=== PATIENT | female | born 1970 | race Two or more races ===

== ENCOUNTER 2017-10-05 10:51 | Outpatient (CLI) | payer MEDICAID ==
--- NOTE | 2017-10-05 14:54 | Ultrasound Report ---
Procedure Date: 10/05/2017 Accession Number: [id number] / [id number] Procedure: US - Head or Neck Soft Tissue CPT Code: FULL RESULT: EXAM: Head or Neck Soft Tissue DATE: 10/05/2017 11:56 AM CLINICAL HISTORY: THYROID CYST COMPARISON: 06/19/2012. TECHNIQUE: Real time sonographic imaging of the thyroid was performed by the spray dry operator. Multiple loss prevention representative static images were saved for review. FINDINGS: THYROID GLAND: Right Lobe: 5.4 x 1.5 x 1.4 cm. Normal background echotexture. Right Lobe Nodules: 0.3 cm cyst. Left Lobe: 5 x 1.3 x 1.5 cm. Normal background echotexture. Left Lobe Nodules: 0.3 cm cyst. Isthmus: 0.1 cm AP. Isthmic Nodules: None. LYMPH NODES: No adenopathy demonstrated in the central or lateral compartment. OTHER: None. IMPRESSION: 1. Stable to decreased 3 mm cysts, one in each thyroid lobe. Based on size and appearance, these carry a very low suspicion for malignancy. Management recommendations are based on 2015 [place] [employer] Management Guidelines for Adult Patients with Thyroid Nodules and Differentiated Thyroid Cancer. RADIA
== END 2017-10-05 10:52 | disposition home or self-care (01) ==
LOC: DI 10:51
PROVIDERS: ATTEND Internal Medicine Endocrinology, Diabetes & Metabolism
DX: E04.1 Nontoxic single thyroid nodule (principal)
CPT/HCPCS: 76536

== ENCOUNTER 2018-12-12 11:23 | Outpatient (CLI) | payer MEDICAID ==
--- NOTE | 2018-12-13 12:07 | Ultrasound Report ---
Reason: HISTORY OF THYROID NODULE Procedure Date: 12/12/2018 Accession Number: [id number] / [id number] Procedure: US - Head or Neck Soft Tissue CPT Code: FULL RESULT: EXAM: THYROID ULTRASOUND EXAM DATE: 12/12/2018 12:42 PM. CLINICAL HISTORY: Follow-up thyroid nodules, family history of thyroid cancer. COMPARISON: HEAD OR NECK SOFT TISSUE 10/05/2017 11:29 AM. TECHNIQUE: Real time sonographic imaging of the thyroid was performed by the bulb assembler. Multiple sales representative advertising static images were saved for review. FINDINGS: THYROID GLAND: Right Lobe: 5.8 x 1.4 x 1.9 cm, volume 8.0 cc. Normal background echotexture. Right Lobe Nodules: Small cystic focus with some possible eccentric colloid in the lower pole measures 2 x 3 x 3 mm, unchanged. Left Lobe: 5.4 x 1.2 x 1.5 cm, volume 5.0 cc. Normal background echotexture. Left Lobe Nodules: Small cystic focus in the lower pole measures 4 x 2 x 3 mm, unchanged. Isthmus: 0.2 cm AP. Isthmic Nodules: None. LYMPH NODES: No adenopathy demonstrated in the central or lateral compartment. OTHER: None. IMPRESSION: 1. No thyroid enlargement or solid nodules. 2. 2 likely incidental cystic thyroid lesions bilaterally measuring 3 and 4 mm respectively not significantly changed. Management recommendations are based on 2015 [place] [employer] Management Guidelines for Adult Patients with Thyroid Nodules and Differentiated Thyroid Cancer. RADIA
== END 2018-12-12 11:24 | disposition home or self-care (01) ==
LOC: DI 11:23
PROVIDERS: ATTEND Internal Medicine Endocrinology, Diabetes & Metabolism
DX: E04.2 Nontoxic multinodular goiter (principal); Z80.8 Family history of malignant neoplasm of other organs or systems
CPT/HCPCS: 76536

== ENCOUNTER 2019-04-03 10:58 | Outpatient (CLI) | payer MEDICAID ==
[2019-04-03 17:37] LABS: BASOPHILS % (AUTO) 0.6 %; EOSINOPHILS # (AUTO) 0.1 10^3/uL (0.0-0.7); HGB - HEMOGLOBIN 12.6 g/dL (12.0-16.0); LYMPHOCYTES # (AUTO) 1.4 10^3/uL (1.5-3.5); MEAN CORPUSCULAR HEMOGLOBIN 31.9 pg (27.0-31.0); MEAN CORPUSCULAR HGB CONC 32.5 g/dL (32.0-36.0); MEAN CORPUSCULAR VOLUME 98.2 fL (81.0-99.0); MEAN PLATELET VOLUME 10.7 fL (7.9-10.8); MONOCYTES # (AUTO) 0.3 10^3/uL (0.0-1.0); MONOCYTES % (AUTO) 5.7 %; NEUTROPHILS # (AUTO) 3.3 10^3/uL (1.5-6.6); NEUTROPHILS % (AUTO) 65.5 %; PLT - PLATELET COUNT 225 10^3/uL (130-450); RED BLOOD COUNT 3.95 10^6/uL (4.20-5.40); RED CELL DISTRIBUTION WIDTH 12.3 % (12.0-15.0); WHITE BLOOD COUNT 5.1 x10^3/uL (4.8-10.8)
[2019-04-03 17:53] LABS: HB2 TOTAL 12.8 g/dL; HEMOGLOBIN A1C 0.42 g/dL; HEMOGLOBIN A1C % 5.2 % (4.6-6.2)
[2019-04-03 18:04] LABS: ALBUMIN 3.9 g/dL (3.2-5.5); ALBUMIN/GLOBULIN RATIO 1.3 (1.0-2.2); BILIRUBIN,TOTAL 0.6 mg/dL (0.2-1.0); CALCIUM 8.9 mg/dL (8.5-10.3); CREATININE 0.6 mg/dL (0.4-1.0); CRP HIGH SENSITIVITY 1.3 mg/L
[2019-04-03 18:08] LABS: THYROID STIMULATING HORMONE 0.93 uIU/mL (0.34-5.60)
[2019-04-03 18:09] LABS: FREE T4 (FREE THYROXINE) 0.74 ng/dL (0.58-1.64)
[2019-04-03 18:12] LABS: TOTAL T3 0.9 ng/mL (0.87-1.78)
[2019-04-03 18:13] LABS: FERRITIN 46.4 ng/mL (11.0-306.8)
[2019-04-04 10:43] LABS: HOMOCYSTEINE 10.1 umol/L (<10.4)
== END 2019-04-03 10:59 | disposition home or self-care (01) ==
LOC: LAB.S 10:58
PROVIDERS: ATTEND Family Medicine
DX: R53.83 Other fatigue (principal); E55.9 Vitamin D deficiency, unspecified; E03.9 Hypothyroidism, unspecified; R73.09 Other abnormal glucose; E72.11 Homocystinuria
CPT/HCPCS: 36415; 80050; 82306; 82626; 82728; 83036; 83090; 84439; 84480; 84481; 84482; 86141

== ENCOUNTER 2019-05-22 13:34 | Outpatient (CLI) | payer MEDICAID ==
[2019-05-22 16:51] LABS: BASOPHILS % (AUTO) 0.9 %; EOSINOPHILS % (AUTO) 0.9 %; HGB - HEMOGLOBIN 13.7 g/dL (12.0-16.0); LYMPHOCYTES # (AUTO) 1.4 10^3/uL (1.5-3.5); LYMPHOCYTES % (AUTO) 30.7 %; MEAN CORPUSCULAR HEMOGLOBIN 32.9 pg (27.0-31.0); MEAN CORPUSCULAR HGB CONC 33.7 g/dL (32.0-36.0); MEAN CORPUSCULAR VOLUME 97.6 fL (81.0-99.0); MEAN PLATELET VOLUME 10.7 fL (7.9-10.8); MONOCYTES # (AUTO) 0.3 10^3/uL (0.0-1.0); MONOCYTES % (AUTO) 6.4 %; NEUTROPHILS # (AUTO) 2.9 10^3/uL (1.5-6.6); NEUTROPHILS % (AUTO) 60.7 %; PLT - PLATELET COUNT 263 10^3/uL (130-450); RED BLOOD COUNT 4.16 10^6/uL (4.20-5.40); RED CELL DISTRIBUTION WIDTH 12.9 % (12.0-15.0); WHITE BLOOD COUNT 4.7 x10^3/uL (4.8-10.8)
[2019-05-22 17:02] LABS: ALBUMIN 4.2 g/dL (3.2-5.5); ALBUMIN/GLOBULIN RATIO 1.3 (1.0-2.2); BILIRUBIN,TOTAL 0.8 mg/dL (0.2-1.0); CALCIUM 9.4 mg/dL (8.5-10.3); CREATININE 0.6 mg/dL (0.4-1.0); TOTAL PROTEIN 7.4 g/dL (6.7-8.2)
[2019-05-22 17:20] LABS: THYROID STIMULATING HORMONE 0.56 uIU/mL (0.34-5.60)
[2019-05-22 17:22] LABS: FREE T4 (FREE THYROXINE) 0.78 ng/dL (0.58-1.64)
[2019-05-22 17:27] LABS: FERRITIN 56.6 ng/mL (11.0-306.8); TOTAL T3 1.24 ng/mL (0.87-1.78)
[2019-05-24 19:19] LABS: T3 REVERSE 16 ng/dL (8-25)
== END 2019-05-22 13:35 | disposition home or self-care (01) ==
LOC: LAB.S 13:34
PROVIDERS: ATTEND Naturopath
DX: E55.9 Vitamin D deficiency, unspecified (principal); G44.009 Cluster headache syndrome, unspecified, not intractable; E03.9 Hypothyroidism, unspecified; R53.83 Other fatigue; M81.8 Other osteoporosis without current pathological fracture
CPT/HCPCS: 36415; 80050; 81599; 82306; 82626; 82728; 83970; 84439; 84480; 84481; 84482

== ENCOUNTER 2020-03-07 13:54 | Outpatient (CLI) | payer MEDICAID ==
[2020-03-07 18:20] LABS: ALBUMIN 4.5 g/dL (3.2-5.5); ALBUMIN/GLOBULIN RATIO 1.5 (1.0-2.2); BILIRUBIN,TOTAL 0.9 mg/dL (0.2-1.0); CALCIUM 9.5 mg/dL (8.5-10.3); CREATININE 0.8 mg/dL (0.4-1.0); TOTAL PROTEIN 7.6 g/dL (6.7-8.2)
== END 2020-03-07 13:55 | disposition home or self-care (01) ==
LOC: LAB.S 13:54
PROVIDERS: ATTEND Internal Medicine Endocrinology, Diabetes & Metabolism
DX: G44.011 Episodic cluster headache, intractable (principal); M81.0 Age-related osteoporosis without current pathological fracture
CPT/HCPCS: 36415; 80053; 82306

== ENCOUNTER 2020-05-12 13:40 | Outpatient (CLI) | payer MEDICAID | END 2020-05-12 13:41 | disposition home or self-care (01) | LOC: LAB.S 13:40 | PROVIDERS: ATTEND Internal Medicine Endocrinology, Diabetes & Metabolism | DX: T45.2X1A Poisoning by vitamins, accidental (unintentional), initial encounter (principal) ==

== ENCOUNTER 2020-05-15 08:00 | Outpatient (CLI) | payer MEDICAID | END 2020-05-15 23:59 | disposition home or self-care (01) | LOC: LAB.S 08:00 | PROVIDERS: ATTEND Internal Medicine Endocrinology, Diabetes & Metabolism | DX: T45.2X1A Poisoning by vitamins, accidental (unintentional), initial encounter (principal) | CPT/HCPCS: 81599; 82340; 82570; 82575 ==

== ENCOUNTER 2020-05-19 08:30 | Outpatient (CLI) | payer MEDICAID ==
--- NOTE | 2020-05-19 13:50 | DEXA Report ---
PROCEDURE: Dexa Spine and/or Hip INDICATIONS: OSTEOPOROSIS TECHNIQUE: Dual energy x-ray absorptiometry (DXA) was performed on a [employer] System. Regions measur ed are the AP Spine, femoral neck, and if needed forearm. COMPARISON: None. FINDINGS: Lumbar Spine: Bone Mineral Density 0.888 g/cm/cm,T score -2.4, severe osteopenia Left Hip: Bone Mineral Density 0.759 g/cm/cm,T score -2.0, moderate osteopenia Left Femoral Neck: Bone Mineral Density 0.824 g/cm/cm, T score -1.5, mild osteopenia (T score greater or equal to -1.0: NORMAL) (T score from -1.1 to -2.4: OSTEOPENIA) (T score less than or equal to -2.5 to: OSTEOPOROSIS) Impression: Borderline osteoporosis within the left femoral neck with moderate osteopenia in the left hip. Patients with diagnosis of osteoporosis or osteopenia should have regular bone mineral density assess ment. For those eligible for Medicare, routine testing is allowed once every 2 years. Testing frequ ency can be increased for patients who have rapidly progressing disease or for those who are receivin g medical therapy to restore bone mass. Reviewed by: Rosa Isela Harris MD on 05/19/2020 1:49 PM PDT Approved by: Rosa Isela Harris MD on 05/19/2020 1:49 PM PDT Station ID: [id number]
== END 2020-05-19 08:31 | disposition home or self-care (01) ==
LOC: DI 08:30
PROVIDERS: ATTEND Internal Medicine Endocrinology, Diabetes & Metabolism
DX: M81.0 Age-related osteoporosis without current pathological fracture (principal)

== ENCOUNTER 2020-06-04 17:50 | Outpatient (CLI) | payer MEDICAID | END 2020-06-04 17:51 | disposition home or self-care (01) | LOC: LAB.S 17:50 | PROVIDERS: ATTEND Naturopath | DX: G44.011 Episodic cluster headache, intractable (principal); E67.3 Hypervitaminosis D; N95.1 Menopausal and female climacteric states; N92.6 Irregular menstruation, unspecified | CPT/HCPCS: 36415; 82310; 83519; 83970 ==

== ENCOUNTER 2020-07-31 14:49 | Outpatient (CLI) | payer MEDICAID ==
[2020-07-31 20:58] LABS: FOLLICLE STIMULATING HORMONE 58.61 mIU/mL
[2020-07-31 20:59] LABS: LUTEINIZING HORMONE 14.86 mIU/mL
== END 2020-07-31 14:50 | disposition home or self-care (01) ==
LOC: LAB.S 14:49
PROVIDERS: ATTEND Internal Medicine Endocrinology, Diabetes & Metabolism
DX: N95.1 Menopausal and female climacteric states (principal)
CPT/HCPCS: 36415; 82670; 83001; 83002

== ENCOUNTER 2020-10-16 14:09 | Outpatient (CLI) | payer MEDICAID | END 2020-10-16 14:10 | disposition home or self-care (01) | LOC: LAB.S 14:09 | PROVIDERS: ATTEND Naturopath | DX: G44.011 Episodic cluster headache, intractable (principal) | CPT/HCPCS: 81599; 82306; 82310; 83970 ==

== ENCOUNTER 2020-11-05 14:43 | Outpatient (CLI) | payer MEDICAID | END 2020-11-05 14:44 | disposition home or self-care (01) | LOC: LAB.S 14:43 | PROVIDERS: ATTEND Naturopath | DX: G44.011 Episodic cluster headache, intractable (principal) | CPT/HCPCS: 36415; 81599; 82306; 82310; 83970 ==

== ENCOUNTER 2020-11-07 10:57 | Outpatient (CLI) | payer MEDICAID ==
--- NOTE | 2020-11-07 13:29 | XRAY Report ---
PROCEDURE: Finger(s) RT INDICATIONS: UNSPECIFIED DISLOCATION OF UNSPECIFIED FINGER, INI TECHNIQUE: AP hand, 2 views of the second finger(s) acquired. COMPARISON: None FINDINGS: Bones: No fractures or dislocations. No suspicious bony lesions. Soft tissues: No suspicious soft tissue calcifications. IMPRESSION: No fractures or dislocations are seen on these plain films. Reviewed by: Blake Iniguez MD on 11/07/2020 12:28 PM AKDT Approved by: Blake Iniguez MD on 11/07/2020 12:28 PM AKDT Station ID: [id number]
== END 2020-11-07 10:58 | disposition home or self-care (01) ==
LOC: DI.S 10:57
PROVIDERS: ATTEND Naturopath
DX: S63.290A Dislocation of distal interphalangeal joint of right index finger, initial encounter (principal)

== ENCOUNTER 2020-12-03 15:24 | Outpatient (CLI) | payer MEDICAID | END 2020-12-03 15:25 | disposition home or self-care (01) | LOC: LAB.S 15:24 | PROVIDERS: ATTEND Naturopath | DX: G44.011 Episodic cluster headache, intractable (principal) | CPT/HCPCS: 36415; 82306; 82310; 83970 ==

== ENCOUNTER 2021-01-05 15:41 | Outpatient (CLI) | payer MEDICAID ==
[2021-01-05 20:23] LABS: CALCIUM 9.3 mg/dL (8.5-10.3); CREATININE 0.7 mg/dL (0.4-1.0); POTASSIUM 3.8 mmol/L (3.5-5.0)
== END 2021-01-05 15:42 | disposition home or self-care (01) ==
LOC: LAB.S 15:41
PROVIDERS: ATTEND Internal Medicine Endocrinology, Diabetes & Metabolism
DX: M81.0 Age-related osteoporosis without current pathological fracture (principal); N95.1 Menopausal and female climacteric states; G44.011 Episodic cluster headache, intractable; R82.994 Hypercalciuria
CPT/HCPCS: 36415; 80048; 82306; 83970

== ENCOUNTER 2021-02-15 14:20 | Outpatient (CLI) | payer MEDICAID ==
[2021-02-15 20:33] LABS: CALCIUM 9.2 mg/dL (8.5-10.3); CREATININE 0.7 mg/dL (0.4-1.0); POTASSIUM 3.4 mmol/L (3.5-5.0)
== END 2021-02-15 14:21 | disposition home or self-care (01) ==
LOC: LAB.S 14:20
PROVIDERS: ATTEND Internal Medicine Endocrinology, Diabetes & Metabolism
DX: M18.0 Bilateral primary osteoarthritis of first carpometacarpal joints (principal); N95.1 Menopausal and female climacteric states; G44.011 Episodic cluster headache, intractable; R82.994 Hypercalciuria
CPT/HCPCS: 36415; 80048; 82306; 83970

== ENCOUNTER 2021-03-29 16:34 | Outpatient (CLI) | payer MEDICAID ==
[2021-03-29 20:17] LABS: CALCIUM 9.1 mg/dL (8.5-10.3); CREATININE 0.6 mg/dL (0.4-1.0); POTASSIUM 3.3 mmol/L (3.5-5.0)
[2021-03-29 20:39] LABS: THYROID STIMULATING HORMONE 0.52 uIU/mL (0.34-5.60)
[2021-03-29 20:40] LABS: FREE T4 (FREE THYROXINE) 0.96 ng/dL (0.58-1.64)
[2021-03-29 21:06] LABS: FOLLICLE STIMULATING HORMONE 122.3 mIU/mL
== END 2021-03-29 16:35 | disposition home or self-care (01) ==
LOC: LAB.S 16:34
PROVIDERS: ATTEND Internal Medicine Endocrinology, Diabetes & Metabolism
DX: M81.0 Age-related osteoporosis without current pathological fracture (principal); N95.1 Menopausal and female climacteric states; G44.011 Episodic cluster headache, intractable; R82.994 Hypercalciuria; E23.7 Disorder of pituitary gland, unspecified
CPT/HCPCS: 36415; 80048; 82306; 82670; 83001; 83970; 84439; 84443

== ENCOUNTER 2021-05-26 15:43 | Outpatient (CLI) | payer MEDICAID ==
[2021-05-26 20:15] LABS: CALCIUM 9.6 mg/dL (8.5-10.3); CREATININE 0.8 mg/dL (0.4-1.0); POTASSIUM 3.9 mmol/L (3.5-5.0)
== END 2021-05-26 15:44 | disposition home or self-care (01) ==
LOC: LAB.S 15:43
PROVIDERS: ATTEND Naturopath
DX: G44.011 Episodic cluster headache, intractable (principal); M81.0 Age-related osteoporosis without current pathological fracture; N95.1 Menopausal and female climacteric states; R82.994 Hypercalciuria
CPT/HCPCS: 36415; 80048; 82306; 83970

== ENCOUNTER 2021-06-22 14:24 | Outpatient (CLI) | payer MEDICAID ==
--- NOTE | 2021-06-22 16:41 | Ultrasound Report ---
PROCEDURE: Head or Neck Soft Tissue INDICATIONS: FAM HIST OF THYROID CA TECHNIQUE: Real-time scanning was performed of the thyroid gland, with image documentation. COMPARISON: 12/12/2018 and 10/05/2017. FINDINGS: Right: Thyroid lobe measures 6.0 x 1.4 x 1 point cm, and is homogeneous in echotexture. Left: Thyroid lobe measures 5.4 x 1.4 x 1.6 cm, and is homogenous in echotexture. Isthmus: 1.3 mm thick. Nodule number: One Location: Right mid lateral Size: 0.5 x 0.3 x 0.4 cm. (Previously not seen). Composition: Solid Echogenicity: Hypoechoic Shape: wider than tall. Margins: Smooth Echogenic foci: Peripheral punctate Total points: 6 ACR TI-RADS category: Moderately suspicious Nodule number: Two Location: Right inferior Size: 0.6 x 0.2 x 0.4 cm. (Previously 0.3 x 0.3 x 0.2 cm) Composition: Cystic Echogenicity: Anechoic Shape: wider than tall. Margins: Irregular Echogenic foci: None Total points: 2 ACR TI-RADS category: Not suspicious Nodule number: Three Location: Left inferior Size: 0.5 x 0.3 x 0.5 cm. Previously 0.4 x 0.2 x 0.3 cm) Composition: Solid Echogenicity: Very Hypoechoic Shape: wider than tall. Margins: Smooth Echogenic foci: None Total points: 5 ACR TI-RADS category: Moderately suspicious. IMPRESSION: Thyroid nodules. Based on criteria outlined below continued surveillance of the nodules is recommended at 1, 2, 3 and 5 year intervals. ACR TI-RADS definitions and recommendations: TI-RADS 1 (benign): 0 points. FNA not needed. TI-RADS 2 (not suspicious): 2 points. FNA not needed. TI-RADS 3 (mildly suspicious): 3 points. "FNA if 2.5 cm or larger, follow up if 1.5 cm or larger (at 1, 3, and 5 years). TI-RADS 4 (moderately suspicious): 4-6 points. "FNA if 1.5 cm or larger, follow up if 1 cm or larger (at 1, 2, 3, and 5 years). TI-RADS 5 (highly suspicious): 7 points or more. "FNA if 1 cm or larger, follow up if 0.5 cm or larger (every year for 5 years). Reviewed by: Mila Goel MD, PhD on 06/22/2021 4:40 PM PDT Approved by: Mila Goel MD, PhD on 06/22/2021 4:40 PM PDT Station ID: [id number]
== END 2021-06-22 14:25 | disposition home or self-care (01) ==
LOC: DI 14:24
PROVIDERS: ATTEND Internal Medicine Endocrinology, Diabetes & Metabolism
DX: E04.2 Nontoxic multinodular goiter (principal); Z80.8 Family history of malignant neoplasm of other organs or systems

== ENCOUNTER 2021-06-23 08:58 | Outpatient (CLI) | payer MEDICAID ==
[2021-06-23 14:41] LABS: CALCIUM 9.4 mg/dL (8.5-10.3); CREATININE 0.6 mg/dL (0.4-1.0)
== END 2021-06-23 08:59 | disposition home or self-care (01) ==
LOC: LAB.S 08:58
PROVIDERS: ATTEND Internal Medicine Endocrinology, Diabetes & Metabolism
DX: T45.2X1A Poisoning by vitamins, accidental (unintentional), initial encounter (principal); R82.994 Hypercalciuria; M85.80 Other specified disorders of bone density and structure, unspecified site; M81.0 Age-related osteoporosis without current pathological fracture; N95.1 Menopausal and female climacteric states; G44.011 Episodic cluster headache, intractable
CPT/HCPCS: 36415; 80048; 82306; 82340; 83970

== ENCOUNTER 2021-11-01 10:59 | Outpatient (CLI) | payer MEDICAID ==
[2021-11-01 14:47] LABS: HCT - HEMATOCRIT 41.3 % (37.0-47.0); HGB - HEMOGLOBIN 13.7 g/dL (12.0-16.0); MEAN CORPUSCULAR HEMOGLOBIN 31.3 pg (27.0-31.0); MEAN CORPUSCULAR HGB CONC 33.2 g/dL (32.0-36.0); MEAN CORPUSCULAR VOLUME 94.3 fL (81.0-99.0); MEAN PLATELET VOLUME 10.7 fL (7.9-10.8); RED BLOOD COUNT 4.38 10^6/uL (4.20-5.40); RED CELL DISTRIBUTION WIDTH 12.8 % (12.0-15.0); WHITE BLOOD COUNT 3.9 x10^3/uL (4.8-10.8)
[2021-11-01 15:32] LABS: ALBUMIN 4.3 g/dL (3.2-5.5); ALBUMIN/GLOBULIN RATIO 1.5 (1.0-2.2); BILIRUBIN,TOTAL 0.6 mg/dL (0.2-1.0); CALCIUM 9.6 mg/dL (8.5-10.3); CORTISOL 11.5 ug/dL; CREATININE 0.5 mg/dL (0.4-1.0); MAGNESIUM 2.3 mg/dL (1.7-2.8); PHOSPHORUS 3.5 mg/dL (2.5-4.6); POTASSIUM 3.7 mmol/L (3.5-5.0); TOTAL PROTEIN 7.2 g/dL (6.7-8.2)
[2021-11-01 15:33] LABS: THYROID STIMULATING HORMONE 0.61 uIU/mL (0.34-5.60)
[2021-11-01 15:38] LABS: FREE T4 (FREE THYROXINE) 0.87 ng/dL (0.58-1.64)
[2021-11-01 15:39] LABS: PROLACTIN 6.08 ng/mL
[2021-11-01 16:01] LABS: FOLLICLE STIMULATING HORMONE 124.77 mIU/mL
[2021-11-01 16:02] LABS: LUTEINIZING HORMONE 42.71 mIU/mL
== END 2021-11-01 11:00 | disposition home or self-care (01) ==
LOC: LAB.S 10:59
PROVIDERS: ATTEND Nurse Practitioner
DX: M85.89 Other specified disorders of bone density and structure, multiple sites (principal); E04.2 Nontoxic multinodular goiter; Z78.0 Asymptomatic menopausal state
CPT/HCPCS: 36415; 80053; 82024; 82306; 82533; 82652; 82670; 83001; 83002; 83735; 83970; 84100; 84146; 84305; 84439; 84443; 85027

== ENCOUNTER 2021-11-15 07:38 | Outpatient (CLI) | payer MEDICAID | END 2021-11-15 07:39 | disposition home or self-care (01) | LOC: LAB.S 07:38 | PROVIDERS: ATTEND Naturopath | DX: G44.021 Chronic cluster headache, intractable (principal); Z71.3 Dietary counseling and surveillance; Z71.82 Exercise counseling; R53.82 Chronic fatigue, unspecified | CPT/HCPCS: 81599; 82340; 82570 ==

== ENCOUNTER 2021-12-07 11:41 | Outpatient (CLI) | payer MEDICAID ==
[2021-12-08 04:08] LABS: CYTOMEGALOVIRUS (CMV) AB IGG <0.60 U/mL (0.00-0.59); CYTOMEGALOVIRUS (CMV) AB IGM <30.0 AU/mL (0.0-29.9)
[2021-12-08 08:10] LABS: EBV AB VCA IGG >600.0 U/mL (0.0-17.9); EBV AB VCA IGM <36.0 U/mL (0.0-35.9); EBV EARLY ANTIGEN AB IGG >150.0 U/mL (0.0-8.9)
[2021-12-08 16:08] LABS: CALCIUM IONIZED SERUM 5.4 mg/dL (4.5-5.6)
[2021-12-09 21:07] LABS: MYCOPLASMA PNEUMONIAE IGG ABS <100 U/mL (0-99); MYCOPLASMA PNEUMONIAE IGM ABS <770 U/mL (0-769)
== END 2021-12-07 11:42 | disposition home or self-care (01) ==
LOC: LAB.S 11:41
PROVIDERS: ATTEND Naturopath
DX: G44.021 Chronic cluster headache, intractable (principal); R53.82 Chronic fatigue, unspecified
CPT/HCPCS: 36415; 80053; 82330; 83970; 86644; 86645; 86663; 86664; 86665; 86738

== ENCOUNTER 2021-12-25 08:00 | Outpatient (CLI) | payer MEDICAID ==
[2021-12-26 05:08] LABS: CALCIUM URINE 12.9 mg/dL (Not Estab.)
== END 2021-12-25 23:59 | disposition home or self-care (01) ==
LOC: LAB.R 08:00
PROVIDERS: ATTEND Naturopath
DX: G44.021 Chronic cluster headache, intractable (principal); Z71.3 Dietary counseling and surveillance; Z71.82 Exercise counseling; R53.82 Chronic fatigue, unspecified
CPT/HCPCS: 82340

== ENCOUNTER 2022-02-07 12:58 | Outpatient (CLI) | payer MEDICAID ==
--- NOTE | 2022-02-07 16:29 | DEXA Report ---
PROCEDURE: Dexa Spine and/or Hip INDICATIONS: OSTEOPENIA TECHNIQUE: Dual energy x-ray absorptiometry (DXA) was performed on a [employer] System. Regions measur ed are the AP Spine, femoral neck, and if needed forearm. COMPARISON: DEXA, 05/19/2020. FINDINGS: Lumbar Spine: Bone Mineral Density 0.832 g/cm/cm,T score -2.9, osteoporosis Left Femoral Neck: Bone Mineral Density 0.814 g/cm/cm, T score -1.6, osteopenia Left Hip: Bone Mineral Density 0.751 g/cm/cm,T score -2.0, osteopenia (T score greater or equal to -1.0: NORMAL) (T score from -1.1 to -2.4: OSTEOPENIA) (T score less than or equal to -2.5 to: OSTEOPOROSIS) Impression: 1. Based on WHO criteria, the patient has osteoporosis. Compared to last exam dated 05/19/2009 21, the patient's bone mineral density in lumbar spine has declined by 6.3%. Her bone mineral density in the left hip is statistically unchanged. Patients with diagnosis of osteoporosis or osteopenia should have regular bone mineral density assess ment. For those eligible for Medicare, routine testing is allowed once every 2 years. Testing frequ ency can be increased for patients who have rapidly progressing disease or for those who are receivin g medical therapy to restore bone mass. Reviewed by: Noman Pettit MD on 02/07/2022 4:28 PM PST Approved by: Noman Pettit MD on 02/07/2022 4:28 PM PST Station ID: [id number]
== END 2022-02-07 12:59 | disposition home or self-care (01) ==
LOC: DI 12:58
PROVIDERS: ATTEND Nurse Practitioner
DX: M81.0 Age-related osteoporosis without current pathological fracture (principal)

== ENCOUNTER 2022-03-31 13:56 | Outpatient (CLI) | payer MEDICAID ==
[2022-03-31 19:59] LABS: ALBUMIN 4.4 g/dL (3.2-5.5); ALBUMIN/GLOBULIN RATIO 1.6 (1.0-2.2); BILIRUBIN,TOTAL 0.7 mg/dL (0.2-1.0); CALCIUM 9.5 mg/dL (8.5-10.3); CREATININE 0.8 mg/dL (0.4-1.0); POTASSIUM 3.9 mmol/L (3.5-5.0); TOTAL PROTEIN 7.2 g/dL (6.7-8.2)
[2022-04-02 08:10] LABS: EBV AB VCA IGG >600.0 U/mL (0.0-17.9); EBV AB VCA IGM <36.0 U/mL (0.0-35.9); EBV EARLY ANTIGEN AB IGG >150.0 U/mL (0.0-8.9)
== END 2022-03-31 13:57 | disposition home or self-care (01) ==
LOC: LAB.S 13:56
PROVIDERS: ATTEND Naturopath
DX: G44.021 Chronic cluster headache, intractable (principal); R53.82 Chronic fatigue, unspecified; Z71.3 Dietary counseling and surveillance; Z71.82 Exercise counseling
CPT/HCPCS: 36415; 80053; 81599; 82330; 83970; 86644; 86645; 86663; 86664; 86665; 86738

== ENCOUNTER 2022-04-09 08:00 | Outpatient (CLI) | payer MEDICAID | END 2022-04-09 23:59 | disposition home or self-care (01) | LOC: LAB.R 08:00 | PROVIDERS: ATTEND Naturopath | DX: G44.021 Chronic cluster headache, intractable (principal); Z71.3 Dietary counseling and surveillance; R53.82 Chronic fatigue, unspecified; Z71.82 Exercise counseling | CPT/HCPCS: 81599; 82340 ==

== ENCOUNTER 2022-07-06 14:02 | Outpatient (CLI) | payer MEDICAID ==
[2022-07-06 20:12] LABS: HCT - HEMATOCRIT 44.1 % (37.0-47.0); HGB - HEMOGLOBIN 14.4 g/dL (12.0-16.0); LYMPHOCYTES # (AUTO) 1.6 10^3/uL (1.5-3.5); LYMPHOCYTES % (AUTO) 36.8 %; MEAN CORPUSCULAR HEMOGLOBIN 30.8 pg (27.0-31.0); MEAN CORPUSCULAR HGB CONC 32.7 g/dL (32.0-36.0); MEAN CORPUSCULAR VOLUME 94.4 fL (81.0-99.0); MEAN PLATELET VOLUME 10.1 fL (7.9-10.8); MONOCYTES # (AUTO) 0.3 10^3/uL (0.0-1.0); MONOCYTES % (AUTO) 8.1 %; NEUTROPHILS # (AUTO) 2.2 10^3/uL (1.5-6.6); NEUTROPHILS % (AUTO) 52.9 %; PLT - PLATELET COUNT 237 10^3/uL (130-450); RED BLOOD COUNT 4.67 10^6/uL (4.20-5.40); RED CELL DISTRIBUTION WIDTH 12.3 % (12.0-15.0); WHITE BLOOD COUNT 4.2 x10^3/uL (4.8-10.8)
[2022-07-06 20:42] LABS: CORTISOL 13.6 ug/dL
[2022-07-06 20:44] LABS: THYROID STIMULATING HORMONE 0.44 uIU/mL (0.34-5.60)
[2022-07-06 20:47] LABS: % IRON SATURATION 28 % (20-50); ALBUMIN 4.8 g/dL (3.2-5.5); ALBUMIN/GLOBULIN RATIO 1.7 (1.0-2.2); ALKALINE PHOSPHATASE 131 IU/L (42-121); ALT ALANINE AMINOTRANSFERASE 17 IU/L (10-60); AST ASPARTATE AMINOTRANSFERASE 26 IU/L (10-42); BILIRUBIN,TOTAL 0.6 mg/dL (0.2-1.0); BUN - BLOOD UREA NITROGEN 17 mg/dL (6-20); CARBON DIOXIDE - CO2 27 mmol/L (21-32); CHLORIDE 108 mmol/L (101-111); CHOLESTEROL 261 mg/dL; CREATININE 0.6 mg/dL (0.4-1.0); GFR - MDRD 105 (>89); GLUCOSE 84 mg/dL (70-100); IRON 101 ug/dL (28-170); SODIUM 142 mmol/L (135-145); TOTAL IRON BINDING CAPACITY 360 ug/dL (250-450); TOTAL PROTEIN 7.6 g/dL (6.7-8.2); TRANSFERRIN 257 mg/dL (192-382)
[2022-07-06 20:49] LABS: FERRITIN 64.8 ng/mL (11.0-306.8)
[2022-07-06 21:19] LABS: CRP - C-REACTIVE PROTEIN < 1.0 mg/dL (0-1.0)
[2022-07-08 03:10] LABS: IMMUNOGLOBULIN A (IGA) 224 mg/dL (87-352); IMMUNOGLOBULIN G (IGG) 1019 mg/dL (586-1602); IMMUNOGLOBULIN M (IGM) 49 mg/dL (26-217)
[2022-07-08 05:14] LABS: CYTOMEGALOVIRUS (CMV) AB IGG <0.60 U/mL (0.00-0.59); CYTOMEGALOVIRUS (CMV) AB IGM <30.0 AU/mL (0.0-29.9)
[2022-07-08 09:09] LABS: EBV AB VCA IGG >600.0 U/mL (0.0-17.9); EBV AB VCA IGM <36.0 U/mL (0.0-35.9); EBV EARLY ANTIGEN AB IGG >150.0 U/mL (0.0-8.9)
[2022-07-08 10:09] LABS: CALCIUM IONIZED SERUM 5.1 mg/dL (4.5-5.6)
[2022-07-08 12:09] LABS: VITAMIN D 25-HYDROXY 193.5 ng/mL (30.0-100.0)
[2022-07-11 13:10] LABS: IMMUNOGLOBULIN E (IGE) 195 IU/mL (6-495)
[2022-07-11 22:07] LABS: MYCOPLASMA PNEUMONIAE IGG ABS 111 U/mL (0-99); MYCOPLASMA PNEUMONIAE IGM ABS <770 U/mL (0-769)
== END 2022-07-06 14:03 | disposition home or self-care (01) ==
LOC: LAB.S 14:02
PROVIDERS: ATTEND Naturopath
DX: G44.021 Chronic cluster headache, intractable (principal); R53.82 Chronic fatigue, unspecified; M85.80 Other specified disorders of bone density and structure, unspecified site; R94.4 Abnormal results of kidney function studies; F41.1 Generalized anxiety disorder; E04.9 Nontoxic goiter, unspecified; E67.3 Hypervitaminosis D; G47.00 Insomnia, unspecified
CPT/HCPCS: 36415; 80050; 81599; 82306; 82330; 82465; 82533; 82728; 82784; 82785; 83540; 83970; 84466; 85651; 86140; 86644; 86645; 86663; 86664; 86665; 86738

== ENCOUNTER 2022-08-18 12:34 | Outpatient (CLI) | payer MEDICAID ==
[2022-08-18 20:11] LABS: CALCIUM 9.3 mg/dL (8.5-10.3); CREATININE 0.6 mg/dL (0.4-1.0); POTASSIUM 4.2 mmol/L (3.5-5.0)
== END 2022-08-18 12:35 | disposition home or self-care (01) ==
LOC: LAB.S 12:34
PROVIDERS: ATTEND Internal Medicine Endocrinology, Diabetes & Metabolism
DX: M81.0 Age-related osteoporosis without current pathological fracture (principal); G44.011 Episodic cluster headache, intractable; N95.1 Menopausal and female climacteric states; R82.994 Hypercalciuria
CPT/HCPCS: 36415; 80048; 82306; 83970

== ENCOUNTER 2023-08-29 12:44 | Outpatient (CLI) | payer MEDICAID ==
[2023-08-29 19:51] LABS: HCT - HEMATOCRIT 41.1 % (37.0-47.0); HGB - HEMOGLOBIN 13.3 g/dL (12.0-16.0); MEAN CORPUSCULAR HEMOGLOBIN 30.9 pg (27.0-31.0); MEAN CORPUSCULAR HGB CONC 32.4 g/dL (32.0-36.0); MEAN CORPUSCULAR VOLUME 95.6 fL (81.0-99.0); MEAN PLATELET VOLUME 9.9 fL (7.9-10.8); RED BLOOD COUNT 4.3 10^6/uL (4.20-5.40); WHITE BLOOD COUNT 5.3 x10^3/uL (4.8-10.8)
[2023-08-29 20:01] LABS: MAGNESIUM 1.8 mg/dL (1.7-2.3)
[2023-08-29 20:07] LABS: ALBUMIN 4.4 g/dL (3.2-5.5); ALBUMIN/GLOBULIN RATIO 1.7 (1.0-2.2); BILIRUBIN,TOTAL 0.4 mg/dL (0.2-1.0); CREATININE 0.6 mg/dL (0.6-1.3); POTASSIUM 3.9 mmol/L (3.5-4.5)
[2023-08-29 20:19] LABS: THYROID STIMULATING HORMONE 0.58 uIU/mL (0.34-5.60)
== END 2023-08-29 12:45 | disposition home or self-care (01) ==
LOC: LAB.S 12:44
PROVIDERS: ATTEND Nurse Practitioner
DX: M81.0 Age-related osteoporosis without current pathological fracture (principal); M85.89 Other specified disorders of bone density and structure, multiple sites
CPT/HCPCS: 36415; 80053; 82306; 82652; 83735; 83970; 84443; 85027

== ENCOUNTER 2023-10-02 08:42 | Outpatient (CLI) | payer MEDICAID | END 2023-10-02 23:59 | disposition home or self-care (01) | LOC: LAB.R 08:42 | PROVIDERS: ATTEND Nurse Practitioner | DX: M81.0 Age-related osteoporosis without current pathological fracture (principal); M85.89 Other specified disorders of bone density and structure, multiple sites; E04.2 Nontoxic multinodular goiter | CPT/HCPCS: 81599; 82340; 82570 ==

== ENCOUNTER 2023-10-03 08:42 | Outpatient (CLI) | payer MEDICAID ==
--- NOTE | 2023-10-03 20:21 | Ultrasound Report ---
PROCEDURE: Soft Tissue Head or Neck INDICATIONS: THYROID NODULE TECHNIQUE: Real-time scanning was performed of the thyroid gland, with image documentation. COMPARISON: 03/23/2022, 06/22/2021 and 11/23/2018, 10/05/2017 FINDINGS: Right: Thyroid lobe measures 5.6 x 1.7 x 1.9 cm. Left: Thyroid lobe measures 4.8 x 1.3 x 1.4 cm Isthmus: 0.1 cm thick. Echotexture: Homogeneous. Previously described subcentimeter thyroid nodules remain essentially unchanged dating back to 2018. IMPRESSION: Stable subcentimeter thyroid nodules without significant change in imaging characteristics over 6 yea rs. Further follow-up is not advised. ACR TI-RADS definitions and recommendations: TI-RADS 1 (benign): 0 points. FNA not needed. TI-RADS 2 (not suspicious): 2 points. FNA not needed. TI-RADS 3 (mildly suspicious): 3 points. "FNA if 2.5 cm or larger, follow up if 1.5 cm or larger (at 1, 3, and 5 years). TI-RADS 4 (moderately suspicious): 4-6 points. "FNA if 1.5 cm or larger, follow up if 1 cm or larger (at 1, 2, 3, and 5 years). TI-RADS 5 (highly suspicious): 7 points or more. "FNA if 1 cm or larger, follow up if 0.5 cm or larger (every year for 5 years). Reviewed by: Perez Simon MD on 10/03/2023 7:19 PM MADELEINE Approved by: Perez Simon MD on 10/03/2023 7:19 PM AKEDWIN Station ID: [id number]
== END 2023-10-03 08:43 | disposition home or self-care (01) ==
LOC: DI 08:42
PROVIDERS: ATTEND Nurse Practitioner
DX: E04.2 Nontoxic multinodular goiter (principal)

== ENCOUNTER 2023-10-03 08:43 | Outpatient (CLI) | payer MEDICAID ==
--- NOTE | 2023-10-03 18:20 | DEXA Report ---
PROCEDURE: Dexa Spine and/or Hip INDICATIONS: OSTEOPOROSIS TECHNIQUE: Dual energy x-ray absorptiometry (DXA) was performed on a [employer] System. Regions measur ed are the AP Spine, femoral neck, and if needed forearm. COMPARISON: 02/07/2022 FINDINGS: Lumbar Spine: Bone Mineral Density: 0.79 g/cm/cm,T score: -3.3. Since the most recent prior study, there has been a statistically significant decrease in bone mineral density by 5.2 percent. Left Femoral Neck: Bone Mineral Density: 0.785 g/cm/cm, T score: -1.8. Left Hip: Bone Mineral Density: 0.733 g/cm/cm,T score: -2.2. Since the most recent prior study, there has been a statistically significant decrease in bone mineral density by 2.4 percent. FRAX risk factors: None given. (T score greater or equal to -1.0: NORMAL) (T score from -1.1 to -2.4: OSTEOPENIA) (T score less than or equal to -2.5 to: OSTEOPOROSIS) Impression: By WHO criteria, this patient has osteoporosis. Interval statistical decrease in bone mineral density of the lumbar spine. Interval statistical decre ase in bone mineral density of the hip. Patients with diagnosis of osteoporosis or osteopenia should have regular bone mineral density assess ment. For those eligible for Medicare, routine testing is allowed once every 2 years. Testing frequ ency can be increased for patients who have rapidly progressing disease or for those who are receivin g medical therapy to restore bone mass. Reviewed by: Walter Hull MD on 10/03/2023 6:19 PM PDT Approved by: Walter Hull MD on 10/03/2023 6:19 PM PDT Station ID: [id number]
== END 2023-10-03 08:44 | disposition home or self-care (01) ==
LOC: DI 08:43
PROVIDERS: ATTEND Nurse Practitioner
DX: M81.0 Age-related osteoporosis without current pathological fracture (principal); E28.319 Asymptomatic premature menopause